=== PATIENT | male | born 1990 | race Hispanic/Latino ===

== ENCOUNTER 2018-10-20 02:13 | Emergency (ER) | payer SELFPAY ==
[2018-10-20 02:24] VITALS: RESP 16
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
[2018-10-20 05:45] VITALS: BP 126/81; PULSE 88; TEMP 98.2; O2SAT 99
== END 2018-10-20 05:46 | disposition home or self-care (01) ==
LOC: EDBD 02:13 → H.ER 02:13
DX: F10.129 Alcohol abuse with intoxication, unspecified (principal)